=== PATIENT | male | born 1985 | race Caucasian/White ===

== ENCOUNTER 2018-04-19 23:05 | Emergency (ER) | payer MEDICAID ==
[~2018-04-19] VITALS: Ht 170.2 cm; Wt 68.0 kg
[2018-04-19 23:08] VITALS: BP 151/87
== END 2018-04-20 01:38 | disposition home or self-care (01) ==
LOC: EMS 23:06
DX: J02.9 Acute pharyngitis, unspecified (principal); F17.210 Nicotine dependence, cigarettes, uncomplicated; F19.90 Other psychoactive substance use, unspecified, uncomplicated
CPT/HCPCS: 99283

== ENCOUNTER 2021-01-05 14:48 | Inpatient (IN) | payer MEDICAID ==
[~2021-01-05] VITALS: Ht 180.3 cm; Wt 66.8 kg
[2021-01-05] MEDS ORDERED: LORazepam 2 MG TABLET PO PRN (17:00)
[2021-01-05] MEDS ORDERED: ZOLPIDEM TARTRATE 10 MG TABLET PO PRN (17:00)
[2021-01-05] MEDS ORDERED: HALOPERIDOL 5 MG TABLET PO PRN (17:00)
[2021-01-05 17:40] VITALS: BP 106/71
[2021-01-05 18:30] VITALS: BP 101/62
[2021-01-05 19:40] VITALS: BP 106/71
[2021-01-05 21:30] VITALS: BP 102/62
[2021-01-05] MEDS ORDERED: MAG HYDROX/AL HYDROX/SIMETH ES 30 ML SUSPENSION UDCUP PO PRN (21:30)
[2021-01-05] MEDS ORDERED: HydrOXYzine PAMOATE 50 MG CAPSULE PO PRN (21:30)
[2021-01-05] MEDS ORDERED: CloNIDine HCL 0.1 MG TABLET PO PRN (21:30)
[2021-01-05] MEDS: CloNIDine HCL 0.1 MG TABLET PO SCH ×2 (22:09→22:42)
[2021-01-05 22:30] VITALS: BP 105/63
[2021-01-05] MEDS: IBUPROFEN 600 MG TABLET PO PRN (23:44)
[2021-01-06] VITALS (12 sets, daily range): BP systolic 90–117; BP diastolic 46–72
[2021-01-06] MEDS: IBUPROFEN 600 MG TABLET PO PRN (06:33)
[2021-01-06] MEDS: CloNIDine HCL 0.1 MG TABLET PO SCH ×4 (06:33→20:47)
[2021-01-06 08:32] LABS: BASOPHILS % (AUTO) 0.2 % (0.0-2.0); EOSINOPHILS % (AUTO) 0.3 % (1.0-6.0); HEMATOCRIT 39.6 % (41-53); HEMOGLOBIN 13.2 g/dL (13.5-17.5); LYMPHOCYTES # (AUTO) 1.6 K/uL (1.0-4.8); LYMPHOCYTES % (AUTO) 10.4 % (22.0-44.0); MEAN CORPUSCULAR HGB CONC 33.2 G/dL (31.0-37.0); MEAN CORPUSCULAR VOLUME 90 fL (80-100); MONOCYTES % (AUTO) 6.5 % (2.0-9.0); NEUTROPHILS # (AUTO) 13.1 K/uL (1.8-7.7); NEUTROPHILS % (AUTO) 82.6 % (40.0-70.0); PLATELET COUNT (AUTO) 185 K/uL (150-450); RED BLOOD CELL COUNT(AUTO) 4.38 MIL/uL (4.50-5.90); RED CELL DISTRIBUTION WIDTH 13.1 % (11.5-14.5)
[2021-01-06 08:59] LABS: ALANINE AMINOTRANSFERASE 205 U/L (12-78); ALBUMIN 2.9 g/dL (3.4-5.0); ALKALINE PHOSPHATASE 145 U/L (46-116); ANION GAP 5 mmol/L (8-16); ASPARTATE AMINOTRANSFERASE 127 U/L (15-37); BILIRUBIN,TOTAL 0.5 mg/dL (0.1-1.0); CALCIUM, TOTAL 8.7 mg/dL (8.8-10.5); CARBON DIOXIDE 30 mmol/L (22-29); CHLORIDE 101 mmol/L (98-107); CHOL/HDL RATIO 5.3 (4.2-7.3); CHOLESTEROL 122 mg/dL (131-200); CREATININE 1.09 mg/dL (0.60-1.30); GLOMERULAR FILTR. RATE CALC > 60 mL/min (>60); GLUCOSE,RANDOM 126 mg/dL (70-110); HDL CHOLESTEROL 23 mg/dL (40-60); LDL CHOL (CALC.) 75 mg/dL (0-130); POTASSIUM 3.6 mmol/L (3.5-5.1); SODIUM SERUM 136 mmol/L (136-145); TOTAL PROTEIN, SERUM 6.7 g/dL (6.4-8.2); TRIGLYCERIDES 122 mg/dL (15-150); UREA NITROGEN, BLOOD 28 mg/dL (7-18)
[2021-01-06 09:04] LABS: HEMOGLOBIN A1C 5.3 % (3.8-5.6)
[2021-01-06 09:22] LABS: THYROID STIMULATING HORMONE 0.52 uIU/mL (0.36-3.74)
[2021-01-06] MEDS ORDERED: ALBUTEROL SULFATE HFA 90 MCG/PUFF 8 GM INHALER IH PRN (09:45)
[2021-01-06] MEDS ORDERED: MAG HYDROX/AL HYDROX/SIMETH ES 30 ML SUSPENSION UDCUP PO PRN (09:45)
[2021-01-06] MEDS ORDERED: ONDANSETRON HCL 4 MG TABLET PO PRN (09:45)
[2021-01-06] MEDS ORDERED: CloNIDine HCL 0.1 MG TABLET PO PRN (09:45)
[2021-01-06] MEDS ORDERED: BENZOCAINE/MENTHOL LOZENGE PO PRN (09:45)
[2021-01-06] MEDS ORDERED: PETROLATUM,WHITE 28 GM JELLY TP PRN (09:45)
[2021-01-06] MEDS ORDERED: BACITRACIN 28 GM OINTMENT TP PRN (09:45)
[2021-01-06] MEDS ORDERED: ACETAMINOPHEN 325 MG TABLET PO PRN (09:45)
[2021-01-06] MEDS ORDERED: MAGNESIUM HYDROXIDE SUSPENSION 30 ML UDCUP PO PRN (09:45)
[2021-01-06] MEDS ORDERED: OMEPRAZOLE 20 MG CAPSULE PO PRN (09:45)
[2021-01-06] MEDS ORDERED: DOCUSATE SODIUM 100 MG CAPSULE PO PRN (09:45)
[2021-01-06] MEDS ORDERED: LOPERAMIDE HCL 2 MG CAPSULE PO PRN (09:45)
[2021-01-06] MEDS ORDERED: IBUPROFEN 600 MG TABLET PO PRN (09:45)
[2021-01-06 10:28] LABS: FREE T4 (FREE THYROXINE) 0.95 ng/dL (0.76-1.46)
[2021-01-07 05:03] VITALS: BP 140/98
[2021-01-07] MEDS: CloNIDine HCL 0.1 MG TABLET PO SCH ×4 (06:00→20:30)
[2021-01-07 06:19] VITALS: BP 101/58
[2021-01-07 08:00] VITALS: BP 105/61
[2021-01-07 08:12] VITALS: BP 105/61
[2021-01-07 16:28] VITALS: BP 106/62
[2021-01-07 18:23] VITALS: BP 100/55
[2021-01-08 05:58] VITALS: BP 110/60
[2021-01-08] MEDS: CloNIDine HCL 0.1 MG TABLET PO SCH ×2 (06:00→12:51)
[2021-01-08 06:01] VITALS: BP 110/60
[2021-01-08 08:27] VITALS: BP 103/58
[2021-01-08] MEDS ORDERED: MULTIVITAMINS WITH MINERALS, THERAPEUTIC TABLET PO SCH (09:00)
== END 2021-01-08 14:27 | disposition home or self-care (01) | DRG 753 ==
LOC: B2S 16:57
PROVIDERS: ADMIT Psychiatry & Neurology Psychiatry; ATTEND Psychiatry & Neurology Psychiatry
DX: F31.9 Bipolar disorder, unspecified (principal); D72.829 Elevated white blood cell count, unspecified; F10.10 Alcohol abuse, uncomplicated; F11.10 Opioid abuse, uncomplicated; F15.10 Other stimulant abuse, uncomplicated; F41.9 Anxiety disorder, unspecified; G47.00 Insomnia, unspecified; K59.00 Constipation, unspecified
CPT/HCPCS: 83036; 84439; 84443